=== PATIENT | female | born 1965 | race Caucasian/White ===

== ENCOUNTER 2017-08-17 07:17 | Day surgery (SDC) | payer BC ==
[2017-08-17] MEDS ORDERED: LIDOCAINE 4% SOLUTION 50 ML BTL (08:30)
[2017-08-17] MEDS ORDERED: PROPOFOL 60 ML (09:33)
== END 2017-08-17 14:50 | disposition home or self-care (01) ==
LOC: GIL 07:17
DX: K21.0 Gastro-esophageal reflux disease with esophagitis (principal); K25.9 Gastric ulcer, unspecified as acute or chronic, without hemorrhage or perforation; K31.7 Polyp of stomach and duodenum; K64.4 Residual hemorrhoidal skin tags; K57.30 Diverticulosis of large intestine without perforation or abscess without bleeding; I51.89 Other ill-defined heart diseases; K62.5 Hemorrhage of anus and rectum; Z87.891 Personal history of nicotine dependence
CPT/HCPCS: 43239

== ENCOUNTER → 2017-09-10 | Outpatient (CLI) | payer BC | END | disposition home or self-care (01) | LOC: HKI 11:27 | DX: M17.12 Unilateral primary osteoarthritis, left knee (principal); M25.562 Pain in left knee; K21.9 Gastro-esophageal reflux disease without esophagitis | CPT/HCPCS: 73564; 73564-LT ==

== ENCOUNTER → 2017-11-12 | Outpatient (CLI) | payer BC | END | disposition home or self-care (01) | LOC: HKI 11:42 | DX: Z01.818 Encounter for other preprocedural examination (principal); M17.12 Unilateral primary osteoarthritis, left knee; G43.909 Migraine, unspecified, not intractable, without status migrainosus; E66.9 Obesity, unspecified; Z68.30 Body mass index [BMI] 30.0-30.9, adult; K64.9 Unspecified hemorrhoids; K57.90 Diverticulosis of intestine, part unspecified, without perforation or abscess without bleeding | CPT/HCPCS: G0463 ==

== ENCOUNTER 2017-11-22 05:31 | Inpatient (IN) | payer BC ==
[2017-11-22] MEDS ORDERED: ONDANSETRON 4 MG INJ IV ×3 (06:00→16:00)
[2017-11-22] MEDS: CEFAZOLIN 2 GM/50 ML (PMX) 50 ML (FOR WT < 120 KG) IVPB (06:00)
[2017-11-22] MEDS ORDERED: LACTATED RINGER'S 1,000 ML IV* (06:00)
[2017-11-22] MEDS: ACETAMINOPHEN 1000MG/100ML IV 100 ML IVPB (06:03)
[2017-11-22] MEDS: ONDANSETRON 4 MG INJ IV ×4 (06:03→21:27)
[2017-11-22] MEDS: LANSOPRAZOLE 30 MG CAP PO (06:04)
[2017-11-22] MEDS: DEXAMETHASONE 4 MG/ML 1 ML INJ IV (06:04)
[2017-11-22] MEDS ORDERED: LIDOCAINE 2% (SDV) 5 ML INJ (07:00)
[2017-11-22] MEDS ORDERED: POLYMYXIN B 500000 UNIT INJ (07:22)
[2017-11-22] MEDS ORDERED: DIPHENHYDRAMINE 50 MG INJ IV ×2 (08:00→10:30)
[2017-11-22] MEDS ORDERED: SENNA/DOCUSATE NA (8.6MG/50MG) TAB PO (08:00)
[2017-11-22] MEDS ORDERED: NA PHOSPHATE/BIPHOS 133 ML ENEMA PR (08:00)
[2017-11-22] MEDS ORDERED: BISACODYL 10 MG SUPP PR (08:00)
[2017-11-22] MEDS ORDERED: BETHANECHOL 25 MG TAB PO (08:00)
[2017-11-22] MEDS ORDERED: NALOXONE (0.4 MG/ML) INJ IV (08:00)
[2017-11-22] MEDS ORDERED: MAGNESIUM HYDROXIDE 30ML CUP PO (08:00)
[2017-11-22] MEDS ORDERED: morphine SULFATE/PF (10 MG/10 ML) INJ (08:48)
[2017-11-22] MEDS ORDERED: BUPIVACAINE 0.75%/DEXT (SPINAL) 2 ML INJ (08:48)
[2017-11-22] MEDS: TRANEXAMIC ACID 1,000 MG in D5W 100 ML AT INCISION X1 IVPB ×2 (10:08→11:38)
[2017-11-22] MEDS ORDERED: MIDAZOLAM 1 MG/ML 2 ML INJ (10:17)
[2017-11-22] MEDS: POLYMYXIN B 500000 UNIT INJ IRR (10:20)
[2017-11-22] MEDS: BACITRACIN 50000 UNITS INJ (10:20)
[2017-11-22] MEDS ORDERED: FENTAnyl 50 MCG/ML VIAL IV ×2 (10:30)
[2017-11-22] MEDS ORDERED: MEPERIDINE 25 MG INJ IV (10:30)
[2017-11-22] MEDS ORDERED: ALBUTEROL 0.083% (NEB) 2.5 MG/3 ML AMP HHN (10:30)
[2017-11-22] MEDS ORDERED: HYDROmorphONE 1 MG/5 ML IV SYRINGE IV ×3 (10:30)
[2017-11-22] MEDS ORDERED: METOCLOPRAMIDE 10 MG INJ IV (10:30)
[2017-11-22] MEDS ORDERED: OXYCODONE/ACETAMINOPHEN (5/325) TAB PO (10:30)
[2017-11-22] MEDS ORDERED: CEFAZOLIN 1 GM INJ (11:21)
[2017-11-22] MEDS ORDERED: SUCCINYLCHOLINE CHLORIDE 100 MG/5 ML SYG IV (11:21)
[2017-11-22] MEDS: TRANEXAMIC ACID 1,000 MG in D5W 100 ML AT CLOSURE X1 IVPB (11:21)
[2017-11-22] MEDS ORDERED: ROCURONIUM 50 MG INJ (11:21)
[2017-11-22] MEDS ORDERED: PROPOFOL 20 ML (11:21)
[2017-11-22] MEDS ORDERED: SUGAMMADEX SODIUM 200 MG/2 ML VIAL IV (11:21)
[2017-11-22] MEDS: ASPIRIN (EC) 325 MG TAB PO (11:53)
[2017-11-22] MEDS: DOCUSATE SODIUM 100 MG CAP PO (11:53)
[2017-11-22] MEDS: FENTAnyl 50 MCG/ML VIAL IV ×2 (11:53→12:02)
[2017-11-22] MEDS: CEFAZOLIN 1 GM/50 ML (PMX) 50 ML IVPB ×2 (11:54→21:27)
[2017-11-22] MEDS: SOD CHLORIDE 0.9% 1,000 ML IV ×2 (11:54→13:59)
[2017-11-22] MEDS: LACTATED RINGER'S 1,000 ML IV ×2 (15:17→15:20)
[2017-11-22] MEDS: ACETAMINOPHEN 500 MG TAB PO ×3 (15:31→21:28)
[2017-11-22] MEDS: GABAPENTIN 100 MG CAP PO ×2 (15:31→21:28)
[2017-11-22] MEDS: CELECOXIB 100 MG CAP PO ×2 (15:31→21:00)
[2017-11-22] MEDS: METOCLOPRAMIDE 10 MG INJ IV (18:22)
[2017-11-22] MEDS ORDERED: METOCLOPRAMIDE (1 MG/ML) 10 ML CUP PO (18:30)
[2017-11-23] MEDS: CEFAZOLIN 1 GM/50 ML (PMX) 50 ML IVPB
[2017-11-23] MEDS: ONDANSETRON 4 MG INJ IV (02:00)
[2017-11-23] MEDS: ACETAMINOPHEN 500 MG TAB PO ×3 (05:40→18:00)
[2017-11-23] MEDS: SOD CHLORIDE 0.9% 1,000 ML IV ×2 (05:40→21:10)
[2017-11-23 05:41] LABS: ADD MAN DIFF? NO
[2017-11-23 05:44] LABS: WHITE BLOOD COUNT 7.7 10^3/ul (4.8-10.8)
[2017-11-23 05:44] LABS: BASOPHILS % 0.3 % (0.0-2.0); EOSINOPHILS % 0.1 % (0.0-7.0); HEMATOCRIT 30.6 % (37.0-47.0); HEMOGLOBIN 9.2 g/dl (12.0-16.0); LYMPHOCYTES # 1.4 10^3/ul (0.8-2.9); LYMPHOCYTES % 18.7 % (15.0-51.0); MEAN CORPUSCULAR HEMOGLOBIN 25.4 pg (29.0-33.0); MEAN CORPUSCULAR HGB CONC 30.1 g/dl (32.0-37.0); MEAN CORPUSCULAR VOLUME 84.5 fl (82.0-101.0); MEAN PLATELET VOLUME 9.4 fl (7.4-10.4); MONOCYTE # 0.8 10^3/ul (0.3-0.9); MONOCYTES % 10.1 % (0.0-11.0); NEUTROPHIL # 5.4 10^3/ul (1.6-7.5); NEUTROPHILS % 70.4 % (39.0-77.0); PLATELET COUNT 348 10^3/UL (140-415); RED BLOOD COUNT 3.62 10^6/ul (4.20-5.40); RED CELL DISTRIBUTION WIDTH 16.1 % (11.5-14.5)
[2017-11-23 06:30] LABS: ANION GAP 8 (8-16); BLOOD UREA NITROGEN 10 mg/dl (7-20); CALCIUM 8.1 mg/dl (8.4-10.2); CARBON DIOXIDE 26 mmol/L (21-31); CHLORIDE 113 mmol/L (97-110); CREATININE 0.73 mg/dl (0.44-1.00); GLUCOSE 103 mg/dl (70-220); POTASSIUM 4.9 mmol/L (3.5-5.1); SODIUM 142 mmol/L (135-144)
[2017-11-23] MEDS: PANTOPRAZOLE (EC) 40 MG TAB PO (08:43)
[2017-11-23] MEDS: GABAPENTIN 100 MG CAP PO ×2 (08:45→21:48)
[2017-11-23] MEDS: ASPIRIN (EC) 325 MG TAB PO (08:45)
[2017-11-23] MEDS: CELECOXIB 100 MG CAP PO ×2 (08:46→21:48)
[2017-11-23] MEDS: FERROUS FUMARATE (SR) TAB PO ×2 (08:46→21:48)
[2017-11-23] MEDS: DOCUSATE SODIUM 100 MG CAP PO ×2 (08:46→21:48)
[2017-11-23] MEDS: ACETAMINOPHEN 325/HYDROC 7.5 15 ML CUP PO ×3 (09:49→18:10)
[2017-11-23] MEDS: KETOROLAC 15 MG INJ IV ×2 (19:22→23:30)
[2017-11-24 05:13] LABS: ADD MAN DIFF? NO
[2017-11-24 05:15] LABS: BASOPHILS % 0.5 % (0.0-2.0); EOSINOPHILS # 0.1 10^3/ul (0.0-0.5); EOSINOPHILS % 2.1 % (0.0-7.0); HEMATOCRIT 31.7 % (37.0-47.0); HEMOGLOBIN 9.6 g/dl (12.0-16.0); LYMPHOCYTES # 2.1 10^3/ul (0.8-2.9); LYMPHOCYTES % 33.9 % (15.0-51.0); MEAN CORPUSCULAR HEMOGLOBIN 25.5 pg (29.0-33.0); MEAN CORPUSCULAR HGB CONC 30.3 g/dl (32.0-37.0); MEAN CORPUSCULAR VOLUME 84.3 fl (82.0-101.0); MEAN PLATELET VOLUME 9.1 fl (7.4-10.4); MONOCYTE # 0.5 10^3/ul (0.3-0.9); MONOCYTES % 8.2 % (0.0-11.0); NEUTROPHIL # 3.4 10^3/ul (1.6-7.5); NEUTROPHILS % 55.1 % (39.0-77.0); PLATELET COUNT 376 10^3/UL (140-415); RED BLOOD COUNT 3.76 10^6/ul (4.20-5.40); RED CELL DISTRIBUTION WIDTH 16.3 % (11.5-14.5)
[2017-11-24 05:15] LABS: WHITE BLOOD COUNT 6.1 10^3/ul (4.8-10.8)
[2017-11-24 05:52] LABS: ANION GAP 10 (8-16); BLOOD UREA NITROGEN 14 mg/dl (7-20); CALCIUM 8.7 mg/dl (8.4-10.2); CARBON DIOXIDE 25 mmol/L (21-31); CHLORIDE 110 mmol/L (97-110); CREATININE 0.85 mg/dl (0.44-1.00); GLUCOSE 88 mg/dl (70-220); POTASSIUM 4.1 mmol/L (3.5-5.1); SODIUM 141 mmol/L (135-144)
[2017-11-24] MEDS: PANTOPRAZOLE (EC) 40 MG TAB PO (05:52)
[2017-11-24] MEDS: ACETAMINOPHEN 500 MG TAB PO ×3 (05:52→11:44)
[2017-11-24] MEDS ORDERED: PANTOPRAZOLE (EC) 40 MG TAB PO (06:00)
[2017-11-24] MEDS: SOD CHLORIDE 0.9% 1,000 ML IV (08:46)
[2017-11-24] MEDS: DOCUSATE SODIUM 100 MG CAP PO (08:52)
[2017-11-24] MEDS: ASPIRIN (EC) 325 MG TAB PO (08:52)
[2017-11-24] MEDS: FERROUS FUMARATE (SR) TAB PO (08:52)
[2017-11-24] MEDS: CELECOXIB 100 MG CAP PO (08:52)
[2017-11-24] MEDS: ACETAMINOPHEN 325/HYDROC 7.5 15 ML CUP PO ×2 (08:53→13:11)
[2017-11-24] MEDS: GABAPENTIN 100 MG CAP PO (08:53)
== END 2017-11-24 17:15 | disposition home health service (06) | DRG 470 ==
LOC: REC 05:31 → MS1 13:00
PROC: 0SRD0J9 Replacement of Left Knee Joint with Synthetic Substitute, Cemented, Open Approach (ICD-10-PCS; principal; 2017-11-22 08:30)
DX: M17.12 Unilateral primary osteoarthritis, left knee (principal); R11.2 Nausea with vomiting, unspecified; E66.9 Obesity, unspecified; T41.295A Adverse effect of other general anesthetics, initial encounter; Z68.30 Body mass index [BMI] 30.0-30.9, adult
CPT/HCPCS: 73560; 80048; 85025; 86850; 86900; 86901; 87081; 97110; 97116; 97161; 97165; 97530

== ENCOUNTER → 2017-12-03 | Outpatient (CLI) | payer BC | END | disposition home or self-care (01) | LOC: HKI 08:45 | DX: Z09 Encounter for follow-up examination after completed treatment for conditions other than malignant neoplasm (principal); Z96.652 Presence of left artificial knee joint | CPT/HCPCS: 73560; 73560-LT ==

== ENCOUNTER → 2017-12-24 | Outpatient (CLI) | payer BC | END | disposition home or self-care (01) | LOC: HKI 08:58 | DX: Z47.1 Aftercare following joint replacement surgery (principal); Z96.652 Presence of left artificial knee joint | CPT/HCPCS: 20610; 73560-LT ==

== ENCOUNTER 2018-03-05 09:16 | Observation (INO) | payer BC ==
[2018-03-05 14:58] LABS: ADD MAN DIFF? NO
[2018-03-05 15:04] LABS: WHITE BLOOD COUNT 11.8 10^3/ul (4.8-10.8)
[2018-03-05 15:04] LABS: BASOPHIL # 0.1 10^3/ul (0.0-0.1); BASOPHILS % 0.4 % (0.0-2.0); EOSINOPHILS # 0.1 10^3/ul (0.0-0.5); EOSINOPHILS % 1.1 % (0.0-7.0); HEMOGLOBIN 11.4 g/dl (12.0-16.0); LYMPHOCYTES # 2.9 10^3/ul (0.8-2.9); LYMPHOCYTES % 24.3 % (15.0-51.0); MEAN CORPUSCULAR HEMOGLOBIN 23.4 pg (29.0-33.0); MEAN CORPUSCULAR VOLUME 77.9 fl (82.0-101.0); MEAN PLATELET VOLUME 9.3 fl (7.4-10.4); MONOCYTE # 0.7 10^3/ul (0.3-0.9); MONOCYTES % 5.5 % (0.0-11.0); NEUTROPHILS % 68.2 % (39.0-77.0); PLATELET COUNT 590 10^3/UL (140-415); RED BLOOD COUNT 4.88 10^6/ul (4.20-5.40); RED CELL DISTRIBUTION WIDTH 14.7 % (11.5-14.5)
[2018-03-05] MEDS: SOD CHLORIDE 0.9% 1,000 ML IV (15:11)
[2018-03-05 15:34] LABS: ALANINE AMINOTRANSFERASE 11 IU/L (13-69); ALBUMIN 4.5 g/dl (3.3-4.9); ALBUMIN/GLOBULIN RATIO 1.18; ALKALINE PHOSPHATASE 125 IU/L (42-121); ANION GAP 12 (5-13); ASPARTATE AMINO TRANSFERASE 16 IU/L (15-46); BILIRUBIN,INDIRECT 0.3 mg/dl (0-1.1); BILIRUBIN,TOTAL 0.3 mg/dl (0.2-1.3); BLOOD UREA NITROGEN 16 mg/dl (7-20); CALCIUM 9.4 mg/dl (8.4-10.2); CARBON DIOXIDE 24 mmol/L (21-31); CHLORIDE 105 mmol/L (97-110); CREATININE 0.76 mg/dl (0.44-1.00); Estimated GFR > 60 mL/min (>60); GLUCOSE 137 mg/dl (70-220); LIPASE 72 U/L (23-300); POTASSIUM 3.9 mmol/L (3.5-5.1); SODIUM 141 mmol/L (135-144); TOTAL PROTEIN 8.3 g/dl (6.1-8.1)
[2018-03-05] MEDS: morphine 4 MG/ML VIAL IV (17:49)
[2018-03-05] MEDS ORDERED: DOCUSATE SODIUM 100 MG CAP PO (18:30)
[2018-03-05] MEDS ORDERED: NACL 0.9% 3 ML SYG IV (18:30)
[2018-03-05] MEDS ORDERED: morphine 2 MG INJ IV (18:30)
[2018-03-05] MEDS ORDERED: ONDANSETRON 4 MG TAB PO (18:30)
[2018-03-05] MEDS ORDERED: ACETAMINOPHEN 325 MG TAB PO (18:30)
[2018-03-05] MEDS ORDERED: ONDANSETRON 4 MG INJ IV (18:30)
[2018-03-05] MEDS ORDERED: ACETAMINOPHEN 650 MG SUPP PR (18:30)
[2018-03-05 18:33] LABS: ADD UMIC YES; UR ASCORBIC ACID NEGATIVE (NEGATIVE); UR BACTERIA FEW /HPF (NONE SEEN); UR BILIRUBIN (Dip) NEGATIVE (NEGATIVE); UR BLOOD (Dip) 1+ mg/dL (NEGATIVE); UR CLARITY SLIGHTLY CLOUDY (CLEAR); UR COLOR YELLOW (YELLOW); UR GLUCOSE (Dip) NEGATIVE (NEGATIVE); UR KETONES (Dip) NEGATIVE (NEGATIVE); UR LEUKOCYTE ESTERASE (Dip) NEGATIVE Leu/ul (NEGATIVE); UR MUCUS FEW /HPF (NONE SEEN); UR NITRITE (Dip) NEGATIVE (NEGATIVE); UR RBC 0 /HPF (0-5); UR SPECIFIC GRAVITY (Dip) 1.025 (1.003-1.030); UR SQUAMOUS EPITHELIAL CELL FEW /HPF (FEW); UR TOTAL PROTEIN (Dip) 1+ mg/dl (NEGATIVE); UR UROBILINOGEN (Dip) NEGATIVE (NEGATIVE); UR WBC 1 /HPF (0-5)
[2018-03-05] MEDS ORDERED: HEPARIN 5,000 UNIT/0.5 ML VIAL SC (21:00)
[2018-03-05] MEDS: FAMOTIDINE 20 MG INJ IV (21:36)
[2018-03-05] MEDS: ONDANSETRON 4 MG INJ IV (22:17)
[2018-03-05] MEDS ORDERED: HEPARIN 5,000 UNIT/0.5 ML VIAL (22:29)
[2018-03-05] MEDS: HEPARIN 5,000 UNIT/1 ML VIAL SC (22:39)
[2018-03-06 06:06] LABS: ADD MAN DIFF? NO
[2018-03-06 06:26] LABS: BASOPHILS % 0.5 % (0.0-2.0); EOSINOPHILS # 0.2 10^3/ul (0.0-0.5); EOSINOPHILS % 2.6 % (0.0-7.0); HEMATOCRIT 33.6 % (37.0-47.0); HEMOGLOBIN 10.1 g/dl (12.0-16.0); LYMPHOCYTES # 2.3 10^3/ul (0.8-2.9); LYMPHOCYTES % 37.6 % (15.0-51.0); MEAN CORPUSCULAR HEMOGLOBIN 23.7 pg (29.0-33.0); MEAN CORPUSCULAR HGB CONC 30.1 g/dl (32.0-37.0); MEAN CORPUSCULAR VOLUME 78.9 fl (82.0-101.0); MEAN PLATELET VOLUME 9.2 fl (7.4-10.4); MONOCYTE # 0.6 10^3/ul (0.3-0.9); MONOCYTES % 9.5 % (0.0-11.0); PLATELET COUNT 486 10^3/UL (140-415); RED BLOOD COUNT 4.26 10^6/ul (4.20-5.40); RED CELL DISTRIBUTION WIDTH 15.1 % (11.5-14.5)
[2018-03-06 06:26] LABS: WHITE BLOOD COUNT 6.1 10^3/ul (4.8-10.8)
[2018-03-06 06:35] LABS: ALANINE AMINOTRANSFERASE 19 IU/L (13-69); ALBUMIN 3.8 g/dl (3.3-4.9); ALKALINE PHOSPHATASE 104 IU/L (42-121); ANION GAP 11 (5-13); ASPARTATE AMINO TRANSFERASE 21 IU/L (15-46); BILIRUBIN,INDIRECT 0.3 mg/dl (0-1.1); BILIRUBIN,TOTAL 0.3 mg/dl (0.2-1.3); BLOOD UREA NITROGEN 14 mg/dl (7-20); CARBON DIOXIDE 26 mmol/L (21-31); CHLORIDE 106 mmol/L (97-110); CREATININE 0.73 mg/dl (0.44-1.00); Estimated GFR > 60 mL/min (>60); GLUCOSE 95 mg/dl (70-220); MAGNESIUM 2.3 mg/dl (1.7-2.5); POTASSIUM 4.1 mmol/L (3.5-5.1); SODIUM 143 mmol/L (135-144); TOTAL PROTEIN 6.5 g/dl (6.1-8.1)
[2018-03-06 08:05] LABS: HEMOGLOBIN A1C 5.7 % (0-5.9)
[2018-03-06] MEDS ORDERED: HEPARIN 5,000 UNIT/0.5 ML VIAL (09:14)
[2018-03-06] MEDS: FAMOTIDINE 20 MG INJ IV ×2 (09:17→20:29)
[2018-03-06] MEDS: HEPARIN 5,000 UNIT/1 ML VIAL SC ×2 (09:18→20:29)
[2018-03-06] MEDS: BARIUM SULFATE 135 ML (E-Z HD) PO (09:56)
[2018-03-07] MEDS: PANTOPRAZOLE 40 MG INJ IV (02:34)
[2018-03-07 05:15] LABS: ADD MAN DIFF? NO
[2018-03-07 05:19] LABS: WHITE BLOOD COUNT 7.6 10^3/ul (4.8-10.8)
[2018-03-07 05:19] LABS: BASOPHILS % 0.5 % (0.0-2.0); EOSINOPHILS # 0.1 10^3/ul (0.0-0.5); EOSINOPHILS % 1.8 % (0.0-7.0); HEMATOCRIT 35.1 % (37.0-47.0); HEMOGLOBIN 10.7 g/dl (12.0-16.0); LYMPHOCYTES # 2.3 10^3/ul (0.8-2.9); LYMPHOCYTES % 30.6 % (15.0-51.0); MEAN CORPUSCULAR HEMOGLOBIN 23.6 pg (29.0-33.0); MEAN CORPUSCULAR HGB CONC 30.5 g/dl (32.0-37.0); MEAN CORPUSCULAR VOLUME 77.5 fl (82.0-101.0); MEAN PLATELET VOLUME 9.2 fl (7.4-10.4); MONOCYTE # 0.7 10^3/ul (0.3-0.9); MONOCYTES % 8.5 % (0.0-11.0); NEUTROPHIL # 4.4 10^3/ul (1.6-7.5); NEUTROPHILS % 57.4 % (39.0-77.0); PLATELET COUNT 502 10^3/UL (140-415); RED BLOOD COUNT 4.53 10^6/ul (4.20-5.40)
[2018-03-07 05:41] LABS: ANION GAP 10 (5-13); BLOOD UREA NITROGEN 11 mg/dl (7-20); CALCIUM 9.2 mg/dl (8.4-10.2); CARBON DIOXIDE 26 mmol/L (21-31); CHLORIDE 107 mmol/L (97-110); CREATININE 0.77 mg/dl (0.44-1.00); Estimated GFR > 60 mL/min (>60); GLUCOSE 97 mg/dl (70-220); LIPASE 61 U/L (23-300); POTASSIUM 4.6 mmol/L (3.5-5.1); SODIUM 143 mmol/L (135-144)
[2018-03-07] MEDS: HEPARIN 5,000 UNIT/1 ML VIAL SC ×2 (08:14→21:00)
[2018-03-07] MEDS: FAMOTIDINE 20 MG INJ IV ×2 (08:14→21:04)
[2018-03-07] MEDS ORDERED: AL HYDROX/MG TRISILICATE TAB PO (14:00)
[2018-03-07 14:28] LABS: IRON 29 ug/dl (35-150)
[2018-03-07 14:38] LABS: % IRON SATURATION 7 % SAT (22-52); TOTAL IRON BINDING CAPACITY 408 ug/dl (241-421)
[2018-03-07 15:04] LABS: FERRITIN 19.6 ng/ml (11.1-264.0)
[2018-03-07] MEDS: LIDOCAINE 1% (MPF) 5 ML VIAL SC (15:30)
[2018-03-07] MEDS ORDERED: LIDOCAINE 1% (MDV) 20 ML INJ SC (15:30)
[2018-03-07] MEDS: CYANOCOBALAMIN 1000 MCG INJ IM (17:15)
[2018-03-07] MEDS ORDERED: HEPARIN 5,000 UNIT/0.5 ML VIAL (20:33)
[2018-03-08] MEDS ORDERED: HEPARIN 5,000 UNIT/0.5 ML VIAL (07:39)
[2018-03-08] MEDS: FAMOTIDINE 20 MG INJ IV (08:11)
[2018-03-08] MEDS: HEPARIN 5,000 UNIT/1 ML VIAL SC (09:00)
== END 2018-03-08 13:20 | disposition home or self-care (01) ==
LOC: E/R 09:16 → PP2 18:12
DX: K95.09 Other complications of gastric band procedure (principal); K21.0 Gastro-esophageal reflux disease with esophagitis; E66.9 Obesity, unspecified; Z68.34 Body mass index [BMI] 34.0-34.9, adult; M19.90 Unspecified osteoarthritis, unspecified site; Z98.84 Bariatric surgery status; Y84.8 Other medical procedures as the cause of abnormal reaction of the patient, or of later complication, without mention of misadventure at the time of the procedure
CPT/HCPCS: 36415; 71045; 74176; 74181; 74240; 80048; 80053; 81001; 82306; 82607; 82728; 83036; 83540; 83690; 83735; 84443; 85025; 87040; 87086; 88305; 88312; 88313; 96374; 99285-25; G0378

== ENCOUNTER → 2018-05-29 | Outpatient (CLI) | payer BC ==
[2018-05-29 10:37] LABS: ADD MAN DIFF? NO
[2018-05-29 10:41] LABS: WHITE BLOOD COUNT 5.2 10^3/ul (4.8-10.8)
[2018-05-29 10:41] LABS: BASOPHILS % 0.8 % (0.0-2.0); EOSINOPHILS # 0.1 10^3/ul (0.0-0.5); EOSINOPHILS % 2.1 % (0.0-7.0); HEMATOCRIT 36.7 % (37.0-47.0); HEMOGLOBIN 11.1 g/dl (12.0-16.0); LYMPHOCYTES # 2.1 10^3/ul (0.8-2.9); LYMPHOCYTES % 39.5 % (15.0-51.0); MEAN CORPUSCULAR HGB CONC 30.2 g/dl (32.0-37.0); MEAN CORPUSCULAR VOLUME 79.3 fl (82.0-101.0); MEAN PLATELET VOLUME 9.1 fl (7.4-10.4); MONOCYTE # 0.4 10^3/ul (0.3-0.9); MONOCYTES % 7.5 % (0.0-11.0); NEUTROPHIL # 2.6 10^3/ul (1.6-7.5); NEUTROPHILS % 49.9 % (39.0-77.0); PLATELET COUNT 453 10^3/UL (140-415); RED BLOOD COUNT 4.63 10^6/ul (4.20-5.40); RED CELL DISTRIBUTION WIDTH 17.4 % (11.5-14.5)
[2018-05-29 11:04] LABS: ALANINE AMINOTRANSFERASE 18 IU/L (13-69); ALKALINE PHOSPHATASE 116 IU/L (42-121); AMYLASE 80 U/L (11-123); ANION GAP 11 (5-13); ASPARTATE AMINO TRANSFERASE 23 IU/L (15-46); BILIRUBIN,INDIRECT 0.2 mg/dl (0-1.1); BILIRUBIN,TOTAL 0.2 mg/dl (0.2-1.3); BLOOD UREA NITROGEN 15 mg/dl (7-20); C-REACTIVE PROTEIN 1.2 mg/dl (0.0-0.9); CALCIUM 9.9 mg/dl (8.4-10.2); CARBON DIOXIDE 27 mmol/L (21-31); CHLORIDE 106 mmol/L (97-110); CHOL/HDL RATIO 6.4 RATIO; CHOLESTEROL 212 mg/dl (100-200); CREATININE 0.89 mg/dl (0.44-1.00); Estimated GFR > 60 mL/min (>60); GLUCOSE 98 mg/dl (70-220); HDL CHOLESTEROL 33 mg/dl (37-92); LDL CHOLESTEROL,CALCULATED 152 mg/dl; POTASSIUM 4.4 mmol/L (3.5-5.1); SODIUM 144 mmol/L (135-144); TOTAL PROTEIN 7.8 g/dl (6.1-8.1); TRIGLYCERIDES 133 mg/dl (0-149)
[2018-05-29 11:05] LABS: PARTIAL THROMBOPLASTIN TIME 31.5 Sec (23.0-35.0); PROTIME 13.3 Sec (11.9-14.9)
[2018-05-29 11:10] LABS: ALBUMIN 4.5 g/dl (3.3-4.9); ALBUMIN/GLOBULIN RATIO 1.36
[2018-05-29 11:45] LABS: ERYTHROCYTE SEDIMENTATION RATE 13 mm/Hr (0-30)
== END | disposition home or self-care (01) ==
LOC: LAB 10:20
DX: R10.9 Unspecified abdominal pain (principal)
CPT/HCPCS: 80053; 80061; 82150; 85025; 85610; 85651; 85730; 86140

== ENCOUNTER 2018-06-04 06:37 | Emergency (ER) | payer BC ==
[2018-06-04] MEDS: ACETAMINOPHEN 325 MG TAB PO (07:12)
== END 2018-06-04 08:28 | disposition home or self-care (01) ==
LOC: FTE 06:37
DX: S40.022A Contusion of left upper arm, initial encounter (principal); V87.7XXA Person injured in collision between other specified motor vehicles (traffic), initial encounter
CPT/HCPCS: 73030; 73080-LT; 73110-LT; 99283-25

== ENCOUNTER 2018-06-20 21:58 | Inpatient (IN) | payer BC ==
[2018-06-20] MEDS: HYDROmorphONE 1 MG/ML SYG IV (22:31)
[2018-06-20] MEDS: ONDANSETRON 4 MG INJ IV (22:31)
[2018-06-20] MEDS: ACETAMINOPHEN 325 MG TAB PO ×2 (22:31→23:13)
[2018-06-20] MEDS: SODIUM CHLORIDE 0.9% 1L BAG IV* (22:32)
[2018-06-20 22:33] LABS: ADD MAN DIFF? NO
[2018-06-20 22:35] LABS: WHITE BLOOD COUNT 15.4 10^3/ul (4.8-10.8)
[2018-06-20 22:35] LABS: BASOPHILS % 0.3 % (0.0-2.0); EOSINOPHILS # 0.1 10^3/ul (0.0-0.5); EOSINOPHILS % 0.7 % (0.0-7.0); HEMOGLOBIN 11.3 g/dl (12.0-16.0); LYMPHOCYTES # 1.6 10^3/ul (0.8-2.9); MEAN CORPUSCULAR HEMOGLOBIN 27.1 pg (29.0-33.0); MEAN CORPUSCULAR HGB CONC 31.4 g/dl (32.0-37.0); MEAN CORPUSCULAR VOLUME 86.3 fl (82.0-101.0); MEAN PLATELET VOLUME 8.8 fl (7.4-10.4); MONOCYTE # 0.9 10^3/ul (0.3-0.9); MONOCYTES % 5.8 % (0.0-11.0); NEUTROPHIL # 12.7 10^3/ul (1.6-7.5); NEUTROPHILS % 82.6 % (39.0-77.0); PLATELET COUNT 619 10^3/UL (140-415); RED BLOOD COUNT 4.17 10^6/ul (4.20-5.40); RED CELL DISTRIBUTION WIDTH 17.3 % (11.5-14.5)
[2018-06-20] MEDS: CEFEPIME 2GM/50 ML (PMX) 50 ML IVPB (22:40)
[2018-06-20 22:54] LABS: INR 1.06; PROTIME 13.9 Sec (11.9-14.9); PT RATIO 1.1
[2018-06-20 22:55] LABS: PARTIAL THROMBOPLASTIN TIME 30.1 Sec (23.0-35.0)
[2018-06-20 22:57] LABS: ALANINE AMINOTRANSFERASE 57 IU/L (13-69); ALBUMIN 3.9 g/dl (3.3-4.9); ALKALINE PHOSPHATASE 99 IU/L (42-121); ANION GAP 10 (5-13); ASPARTATE AMINO TRANSFERASE 29 IU/L (15-46); BILIRUBIN,INDIRECT 0.5 mg/dl (0-1.1); BILIRUBIN,TOTAL 0.5 mg/dl (0.2-1.3); BLOOD UREA NITROGEN 10 mg/dl (7-20); CALCIUM 9.3 mg/dl (8.4-10.2); CARBON DIOXIDE 26 mmol/L (21-31); CHLORIDE 103 mmol/L (97-110); CREATININE 0.69 mg/dl (0.44-1.00); Estimated GFR > 60 mL/min (>60); GLUCOSE 130 mg/dl (70-220); POTASSIUM 3.7 mmol/L (3.5-5.1); SODIUM 139 mmol/L (135-144); TOTAL PROTEIN 6.9 g/dl (6.1-8.1)
[2018-06-20 23:08] LABS: TROPONIN-I < 0.012 ng/ml (0.000-0.120)
[2018-06-20] MEDS: VANCOMYCIN 1 GM (PMX) 250 ML IVPB (23:10)
[2018-06-20] MEDS: IOHEXOL 300MG/ML 150 ML BTL (23:12)
[2018-06-20] MEDS: SOD CHLORIDE 0.9% 100 ML (23:12)
[2018-06-20] MEDS: ACETAMINOPHEN 650MG/20.3ML CUP PO (23:15)
[2018-06-20] MEDS: IOHEXOL 14.3 MG(I)/ML (ADULT) BTL PO (23:30)
[2018-06-21] MEDS ORDERED: ACETAMINOPHEN 325 MG TAB PO (02:00)
[2018-06-21] MEDS ORDERED: ONDANSETRON 4 MG INJ IV ×2 (02:00→06:00)
[2018-06-21 02:36] LABS: ADD UMIC NO; UR ASCORBIC ACID NEGATIVE (NEGATIVE); UR BILIRUBIN (Dip) NEGATIVE (NEGATIVE); UR BLOOD (Dip) NEGATIVE (NEGATIVE); UR CLARITY CLEAR (CLEAR); UR COLOR YELLOW (YELLOW); UR GLUCOSE (Dip) NEGATIVE (NEGATIVE); UR KETONES (Dip) TRACE mg/dL (NEGATIVE); UR LEUKOCYTE ESTERASE (Dip) NEGATIVE Leu/ul (NEGATIVE); UR NITRITE (Dip) NEGATIVE (NEGATIVE); UR SPECIFIC GRAVITY (Dip) > 1.060 (1.003-1.030); UR TOTAL PROTEIN (Dip) NEGATIVE (NEGATIVE); UR UROBILINOGEN (Dip) NEGATIVE (NEGATIVE)
[2018-06-21] MEDS ORDERED: morphine 4 MG/ML VIAL IV (03:30)
[2018-06-21] MEDS: D5W-0.45 NACL + KCL 20 MEQ 1,000 ML IV ×3 (03:45→21:57)
[2018-06-21 03:58] LABS: LACTIC ACID 1.5 mmol/L (0.5-2.0)
[2018-06-21] MEDS ORDERED: NACL 0.9% 3 ML SYG IV (06:00)
[2018-06-21] MEDS ORDERED: LORAZEPAM 2 MG INJ IV (06:00)
[2018-06-21] MEDS: PANTOPRAZOLE 40 MG INJ IV (06:57)
[2018-06-21] MEDS: ACETAMINOPHEN 1000MG/100ML IV 100 ML IVPB ×2 (08:09→14:26)
[2018-06-21 10:14] LABS: IRON < 10 ug/dl (35-150)
[2018-06-21 10:23] LABS: TOTAL IRON BINDING CAPACITY 353 ug/dl (241-421)
[2018-06-21] MEDS: PIPER-TAZO 3.375 GM IV (PMX) 100 ML IVPB ×2 (12:14→18:34)
[2018-06-22] MEDS: PIPER-TAZO 3.375 GM IV (PMX) 100 ML IVPB ×4 (00:09→18:41)
[2018-06-22 05:27] LABS: ADD MAN DIFF? NO
[2018-06-22 05:28] LABS: WHITE BLOOD COUNT 15.4 10^3/ul (4.8-10.8)
[2018-06-22 05:28] LABS: BASOPHILS % 0.3 % (0.0-2.0); EOSINOPHILS # 0.2 10^3/ul (0.0-0.5); HEMATOCRIT 29.3 % (37.0-47.0); HEMOGLOBIN 9.1 g/dl (12.0-16.0); LYMPHOCYTES # 1.3 10^3/ul (0.8-2.9); LYMPHOCYTES % 8.5 % (15.0-51.0); MEAN CORPUSCULAR HEMOGLOBIN 27.2 pg (29.0-33.0); MEAN CORPUSCULAR HGB CONC 31.1 g/dl (32.0-37.0); MEAN CORPUSCULAR VOLUME 87.5 fl (82.0-101.0); MEAN PLATELET VOLUME 9.6 fl (7.4-10.4); MONOCYTE # 0.9 10^3/ul (0.3-0.9); MONOCYTES % 6.1 % (0.0-11.0); NEUTROPHIL # 12.9 10^3/ul (1.6-7.5); NEUTROPHILS % 83.3 % (39.0-77.0); PLATELET COUNT 515 10^3/UL (140-415); RED BLOOD COUNT 3.35 10^6/ul (4.20-5.40); RED CELL DISTRIBUTION WIDTH 17.2 % (11.5-14.5)
[2018-06-22 05:49] LABS: HEMOGLOBIN A1C 5.2 % (0-5.9)
[2018-06-22 06:00] LABS: ALANINE AMINOTRANSFERASE 35 IU/L (13-69); ALBUMIN 2.7 g/dl (3.3-4.9); ALKALINE PHOSPHATASE 76 IU/L (42-121); ANION GAP 4 (5-13); ASPARTATE AMINO TRANSFERASE 12 IU/L (15-46); BILIRUBIN,INDIRECT 0.3 mg/dl (0-1.1); BILIRUBIN,TOTAL 0.3 mg/dl (0.2-1.3); BLOOD UREA NITROGEN 6 mg/dl (7-20); CALCIUM 8.3 mg/dl (8.4-10.2); CARBON DIOXIDE 24 mmol/L (21-31); CHLORIDE 108 mmol/L (97-110); CREATININE 0.66 mg/dl (0.44-1.00); Estimated GFR > 60 mL/min (>60); GLUCOSE 126 mg/dl (70-220); POTASSIUM 3.9 mmol/L (3.5-5.1); SODIUM 136 mmol/L (135-144); TOTAL PROTEIN 5.4 g/dl (6.1-8.1)
[2018-06-22 06:05] LABS: AMYLASE < 30 U/L (11-123)
[2018-06-22] MEDS: PANTOPRAZOLE 40 MG INJ IV (06:17)
[2018-06-22] MEDS: D5W-0.45 NACL + KCL 20 MEQ 1,000 ML IV ×3 (06:17→18:04)
[2018-06-22 07:07] LABS: ERYTHROCYTE SEDIMENTATION RATE 26 mm/Hr (0-30)
[2018-06-22] MEDS ORDERED: VANCOMYCIN IV PER PHARMACY XX (16:00)
[2018-06-22] MEDS: BARIUM SULFATE 135 ML (E-Z HD) PO (16:09)
[2018-06-22] MEDS: VANCOMYCIN HCL 1.75 GM in SOD CHLORIDE 0.9% 500 ML IVPB (20:10)
[2018-06-22] MEDS ORDERED: VANCOMYCIN HCL 1.5 GM in SOD CHLORIDE 0.9% 250 ML IVPB (21:00)
[2018-06-23] MEDS: PIPER-TAZO 3.375 GM IV (PMX) 100 ML IVPB ×5 (00:43→23:56)
[2018-06-23] MEDS: D5W-0.45 NACL + KCL 20 MEQ 1,000 ML IV ×3 (03:30→19:30)
[2018-06-23] MEDS: PANTOPRAZOLE 40 MG INJ IV (05:00)
[2018-06-23] MEDS: VANCOMYCIN HCL 1.25 GM in SOD CHLORIDE 0.9% 250 ML IVPB ×2 (06:18→18:51)
[2018-06-23 10:33] LABS: WHITE BLOOD COUNT 9.1 10^3/ul (4.8-10.8)
[2018-06-23 10:33] LABS: ADD MAN DIFF? NO; BASOPHILS % 0.2 % (0.0-2.0); EOSINOPHILS # 0.2 10^3/ul (0.0-0.5); EOSINOPHILS % 1.8 % (0.0-7.0); HEMATOCRIT 31.5 % (37.0-47.0); HEMOGLOBIN 9.5 g/dl (12.0-16.0); LYMPHOCYTES # 1.4 10^3/ul (0.8-2.9); LYMPHOCYTES % 15.8 % (15.0-51.0); MEAN CORPUSCULAR HEMOGLOBIN 26.9 pg (29.0-33.0); MEAN CORPUSCULAR HGB CONC 30.2 g/dl (32.0-37.0); MEAN CORPUSCULAR VOLUME 89.2 fl (82.0-101.0); MEAN PLATELET VOLUME 9.1 fl (7.4-10.4); MONOCYTE # 0.5 10^3/ul (0.3-0.9); MONOCYTES % 5.6 % (0.0-11.0); NEUTROPHIL # 6.9 10^3/ul (1.6-7.5); NEUTROPHILS % 76.2 % (39.0-77.0); PLATELET COUNT 527 10^3/UL (140-415); RED BLOOD COUNT 3.53 10^6/ul (4.20-5.40); RED CELL DISTRIBUTION WIDTH 17.5 % (11.5-14.5)
[2018-06-24] MEDS: D5W-0.45 NACL + KCL 20 MEQ 1,000 ML IV ×3 (02:53→14:16)
[2018-06-24] MEDS: PIPER-TAZO 3.375 GM IV (PMX) 100 ML IVPB ×3 (05:43→17:40)
[2018-06-24] MEDS: PANTOPRAZOLE 40 MG INJ IV ×2 (05:50→06:32)
[2018-06-24 06:20] LABS: VANCOMYCIN,TROUGH 17.4 ug/ml (10.0-20.0)
[2018-06-24 07:32] LABS: CREATININE 0.75 mg/dl (0.44-1.00)
[2018-06-24 07:32] LABS: BLOOD UREA NITROGEN 3 mg/dl (7-20)
[2018-06-24] MEDS: VANCOMYCIN 1 GM 250 ML IVPB ×2 (08:38→20:00)
[2018-06-25] MEDS: D5W-0.45 NACL + KCL 20 MEQ 1,000 ML IV ×2 (03:30→05:57)
[2018-06-25] MEDS: PIPER-TAZO 3.375 GM IV (PMX) 100 ML IVPB ×3 (05:08→12:00)
[2018-06-25] MEDS: PANTOPRAZOLE 40 MG INJ IV (05:08)
[2018-06-25] MEDS: VANCOMYCIN 1 GM 250 ML IVPB (08:23)
[2018-06-25] MEDS: ACETAMINOPHEN 325 MG TAB PO (12:13)
[2018-06-25] MEDS ORDERED: AMOXICILLIN/CLAV (50 MG/ML PO SYG) PO (13:30)
[2018-06-25] MEDS: AMOXICILLIN/CLAV (50 MG/ML PO SYG) PO ×2 (14:00→14:20)
[2018-06-25] MEDS: DOXYCYCLINE 100 MG TAB PO (14:19)
== END 2018-06-25 18:40 | disposition home or self-care (01) | DRG 863 ==
LOC: E/R 21:58 → TEL 06-21 01:56 → MS1 06-21 13:43
DX: T81.49XA Infection following a procedure, other surgical site, initial encounter (principal); L02.818 Cutaneous abscess of other sites; G89.18 Other acute postprocedural pain; D72.829 Elevated white blood cell count, unspecified; R10.9 Unspecified abdominal pain; K76.0 Fatty (change of) liver, not elsewhere classified; D64.9 Anemia, unspecified; G43.909 Migraine, unspecified, not intractable, without status migrainosus; K21.0 Gastro-esophageal reflux disease with esophagitis; K64.4 Residual hemorrhoidal skin tags; K57.90 Diverticulosis of intestine, part unspecified, without perforation or abscess without bleeding; E66.9 Obesity, unspecified; Z68.34 Body mass index [BMI] 34.0-34.9, adult; R19.7 Diarrhea, unspecified
CPT/HCPCS: 36415; 71045; 74177; 74240; 80053; 80202; 81003; 82150; 82565; 82607; 83036; 83540; 83605; 83735; 84484; 84520; 85025; 85610; 85651; 85730; 87040; 87045; 87075; 87086; 93005; 96365; 96375; 99291-25

== ENCOUNTER → 2018-08-09 | Outpatient (CLI) | payer BC | END | disposition home or self-care (01) | LOC: HKI 13:26 | DX: Z47.1 Aftercare following joint replacement surgery (principal); Z96.652 Presence of left artificial knee joint | CPT/HCPCS: 20610; 73562-LT ==

== ENCOUNTER → 2018-10-02 | Outpatient (CLI) | payer BC ==
[2018-10-02 19:45] LABS: ADD MAN DIFF? NO
[2018-10-02 19:49] LABS: WHITE BLOOD COUNT 6.4 10^3/ul (4.8-10.8)
[2018-10-02 19:49] LABS: BASOPHILS % 0.5 % (0.0-2.0); EOSINOPHILS # 0.1 10^3/ul (0.0-0.5); EOSINOPHILS % 1.6 % (0.0-7.0); HEMATOCRIT 38.8 % (37.0-47.0); HEMOGLOBIN 12.2 g/dl (12.0-16.0); LYMPHOCYTES # 2.5 10^3/ul (0.8-2.9); LYMPHOCYTES % 39.1 % (15.0-51.0); MEAN CORPUSCULAR HEMOGLOBIN 27.1 pg (29.0-33.0); MEAN CORPUSCULAR HGB CONC 31.4 g/dl (32.0-37.0); MEAN PLATELET VOLUME 9.5 fl (7.4-10.4); MONOCYTE # 0.5 10^3/ul (0.3-0.9); NEUTROPHIL # 3.2 10^3/ul (1.6-7.5); NEUTROPHILS % 50.6 % (39.0-77.0); PLATELET COUNT 398 10^3/UL (140-415); RED BLOOD COUNT 4.51 10^6/ul (4.20-5.40); RED CELL DISTRIBUTION WIDTH 14.6 % (11.5-14.5)
[2018-10-02 20:04] LABS: IRON 40 ug/dl (35-150)
[2018-10-02 20:06] LABS: ALANINE AMINOTRANSFERASE 20 IU/L (13-69); ALBUMIN 4.4 g/dl (3.3-4.9); ALBUMIN/GLOBULIN RATIO 1.37; ALKALINE PHOSPHATASE 91 IU/L (42-121); AMYLASE 93 U/L (11-123); ANION GAP 6 (5-13); ASPARTATE AMINO TRANSFERASE 20 IU/L (15-46); BILIRUBIN,INDIRECT 0.4 mg/dl (0-1.1); BILIRUBIN,TOTAL 0.4 mg/dl (0.2-1.3); BLOOD UREA NITROGEN 11 mg/dl (7-20); CALCIUM 9.7 mg/dl (8.4-10.2); CARBON DIOXIDE 30 mmol/L (21-31); CHLORIDE 106 mmol/L (97-110); CREATININE 0.83 mg/dl (0.44-1.00); Estimated GFR > 60 mL/min (>60); GLUCOSE 80 mg/dl (70-220); INR 0.98; POTASSIUM 4.2 mmol/L (3.5-5.1); PROTIME 13.1 Sec (11.9-14.9); SODIUM 142 mmol/L (135-144); TOTAL PROTEIN 7.6 g/dl (6.1-8.1)
[2018-10-02 20:07] LABS: PARTIAL THROMBOPLASTIN TIME 29.9 Sec (23.0-35.0)
[2018-10-02 20:14] LABS: % IRON SATURATION 8 % SAT (22-52); TOTAL IRON BINDING CAPACITY 484 ug/dl (241-421)
[2018-10-02 21:11] LABS: FOLATE 13.5 ng/ml (2.8-20.0)
== END | disposition home or self-care (01) ==
LOC: LAB 10:02
DX: Z98.84 Bariatric surgery status (principal)
CPT/HCPCS: 80053; 82150; 82525; 82746; 83540; 84425; 84590; 84630; 85025; 85610; 85730

== ENCOUNTER → 2018-12-13 | Outpatient (CLI) | payer BC ==
[2018-12-13 16:53] LABS: ADD MAN DIFF? NO
[2018-12-13 17:01] LABS: WHITE BLOOD COUNT 6.1 10^3/ul (4.8-10.8)
[2018-12-13 17:01] LABS: BASOPHIL # 0.1 10^3/ul (0.0-0.1); BASOPHILS % 0.8 % (0.0-2.0); EOSINOPHILS # 0.1 10^3/ul (0.0-0.5); EOSINOPHILS % 2.3 % (0.0-7.0); HEMOGLOBIN 11.8 g/dl (12.0-16.0); LYMPHOCYTES # 2.7 10^3/ul (0.8-2.9); LYMPHOCYTES % 44.2 % (15.0-51.0); MEAN CORPUSCULAR HEMOGLOBIN 27.1 pg (29.0-33.0); MEAN CORPUSCULAR HGB CONC 31.1 g/dl (32.0-37.0); MEAN CORPUSCULAR VOLUME 87.4 fl (82.0-101.0); MEAN PLATELET VOLUME 9.6 fl (7.4-10.4); MONOCYTE # 0.4 10^3/ul (0.3-0.9); MONOCYTES % 6.7 % (0.0-11.0); NEUTROPHIL # 2.8 10^3/ul (1.6-7.5); NEUTROPHILS % 45.8 % (39.0-77.0); PLATELET COUNT 403 10^3/UL (140-415); RED BLOOD COUNT 4.35 10^6/ul (4.20-5.40); RED CELL DISTRIBUTION WIDTH 14.5 % (11.5-14.5)
[2018-12-13 17:20] LABS: IRON 28 ug/dl (35-150)
[2018-12-13 17:21] LABS: INR 0.97
[2018-12-13 17:22] LABS: ALANINE AMINOTRANSFERASE 19 IU/L (13-69); ALBUMIN 4.2 g/dl (3.3-4.9); ALBUMIN/GLOBULIN RATIO 1.31; ALKALINE PHOSPHATASE 92 IU/L (42-121); AMYLASE 97 U/L (11-123); ANION GAP 8 (5-13); ASPARTATE AMINO TRANSFERASE 20 IU/L (15-46); BILIRUBIN,INDIRECT 0.3 mg/dl (0-1.1); BILIRUBIN,TOTAL 0.3 mg/dl (0.2-1.3); BLOOD UREA NITROGEN 19 mg/dl (7-20); CALCIUM 9.5 mg/dl (8.4-10.2); CARBON DIOXIDE 26 mmol/L (21-31); CHLORIDE 106 mmol/L (97-110); CREATININE 0.77 mg/dl (0.44-1.00); Estimated GFR > 60 mL/min (>60); GLUCOSE 95 mg/dl (70-220); PARTIAL THROMBOPLASTIN TIME 32.2 Sec (23.0-35.0); POTASSIUM 4.3 mmol/L (3.5-5.1); SODIUM 140 mmol/L (135-144); TOTAL PROTEIN 7.4 g/dl (6.1-8.1)
[2018-12-13 17:29] LABS: % IRON SATURATION 6 % SAT (22-52); TOTAL IRON BINDING CAPACITY 465 ug/dl (241-421)
[2018-12-13 18:27] LABS: FOLATE 17.5 ng/ml (2.8-20.0)
== END | disposition home or self-care (01) ==
LOC: LAB 12:27
DX: Z98.84 Bariatric surgery status (principal)
CPT/HCPCS: 80053; 82150; 82525; 82746; 83540; 84425; 84590; 84630; 85025; 85610; 85730